=== PATIENT | male | born 1990 | race Hispanic/Latino ===

== ENCOUNTER 2017-07-11 23:26 | Emergency (ER) | payer MEDICAID ==
[2017-07-12] MEDS ORDERED: KETOROLAC TROMETHAMINE 60 MG/2 ML VIAL ONE (01:07)
== END 2017-07-12 01:17 | disposition home or self-care (01) ==
LOC: EDH 23:26
DX: J06.9 Acute upper respiratory infection, unspecified (principal)
CPT/HCPCS: 96372; 99283; J1885

== ENCOUNTER 2018-07-22 02:43 | Emergency (ER) | payer MEDICAID, OTHER | END 2018-07-22 04:14 | disposition home or self-care (01) | LOC: EDH 02:43 | DX: S60.212A Contusion of left wrist, initial encounter (principal); X58.XXXA Exposure to other specified factors, initial encounter; Y93.89 Activity, other specified; Y92.89 Other specified places as the place of occurrence of the external cause; Y99.8 Other external cause status | CPT/HCPCS: 73110 ==

== ENCOUNTER 2019-01-31 22:35 | Emergency (ER) | payer SELFPAY | END 2019-01-31 23:59 | disposition home or self-care (01) | LOC: EDH 22:35 | DX: S05.02XA Injury of conjunctiva and corneal abrasion without foreign body, left eye, initial encounter (principal); X58.XXXA Exposure to other specified factors, initial encounter; Y93.89 Activity, other specified; Y92.89 Other specified places as the place of occurrence of the external cause; Y99.8 Other external cause status ==

== ENCOUNTER 2019-02-22 13:29 | Emergency (ER) | payer SELFPAY ==
[2019-02-22] MEDS ORDERED: NA BORATE/BORIC AC/H2O/NACL 120 ML OPHTH IRRIG SOLN ONE (14:00)
[2019-02-22] MEDS ORDERED: FLUORESCEIN SODIUM 1 STRIP STRIP ONE (14:00)
[2019-02-22] MEDS ORDERED: TETRACAINE HCL 0.5% 4 ML OPHTH SOLN ONE (14:00)
== END 2019-02-22 14:26 | disposition home or self-care (01) ==
LOC: EDH 13:29
DX: S05.02XA Injury of conjunctiva and corneal abrasion without foreign body, left eye, initial encounter (principal); S05.01XA Injury of conjunctiva and corneal abrasion without foreign body, right eye, initial encounter; X58.XXXA Exposure to other specified factors, initial encounter; Y93.89 Activity, other specified; Y92.89 Other specified places as the place of occurrence of the external cause; Y99.8 Other external cause status
CPT/HCPCS: 99282

== ENCOUNTER 2022-10-06 20:27 | Emergency (ER) | payer OTHER ==
[2022-10-06 20:50] VITALS: BP 143/77
[2022-10-07] MEDS ORDERED: ONDA4TAB10 PO (14:17)
[2022-10-07] MEDS ORDERED: OSEL75 PO (14:17)
== END 2022-10-06 21:07 | disposition left against medical advice (07) ==
LOC: EDH 20:27
DX: R11.2 Nausea with vomiting, unspecified (principal); Z53.21 Procedure and treatment not carried out due to patient leaving prior to being seen by health care provider
CPT/HCPCS: 99281

== ENCOUNTER 2022-10-07 12:26 | Emergency (ER) | payer OTHER ==
[~2022-10-07] VITALS: Ht 177.8 cm; Wt 77.1 kg
[2022-10-07 12:26] VITALS: BP 146/70
[2022-10-07 12:50] LABS: BASOPHILS % (AUTO) 0.4 % (0.0-5.0); HEMATOCRIT 48.2 % (42-54); LYMPHOCYTES % (AUTO) 12.6 % (21.0-51.0); MEAN CORPUSCULAR HGB CONC 35.1 g/dL (32.0-36.0); MEAN CORPUSCULAR VOLUME 85.5 fL (79-99); MONOCYTES % (AUTO) 2.9 % (3.0-13.0); NEUTROPHILS % (AUTO) 83.2 % (40.0-77.0); PLATELET COUNT (AUTO) 257 K/uL (130-400); RED BLOOD CELL COUNT(AUTO) 5.64 MIL/uL (4.50-6.20); RED CELL DISTRIBUTION WIDTH 12.4 % (11.0-15.5); WHITE BLOOD COUNT (AUTO) 11.5 K/uL (4.8-10.8)
[2022-10-07 13:03] LABS: ALBUMIN 4.3 g/dL (3.5-5.0); CREATININE 0.9 mg/dL (0.5-1.5); POTASSIUM 4.1 mmol/L (3.5-5.1); TOTAL PROTEIN, SERUM 8.1 g/dL (6.0-8.3)
[2022-10-07] MEDS ORDERED: PANTOPRAZOLE 40 MG/VIAL ONE (14:17)
[2022-10-07] MEDS ORDERED: 0.9%NACL 1000ML 2,000 ML IV ONE (14:17)
[2022-10-07] MEDS ORDERED: OSEL75 PO (14:17)
[2022-10-07] MEDS ORDERED: ONDA4TAB10 PO (14:17)
[2022-10-07 14:25] LABS: APPEARANCE,URINE CLEAR (CLEAR); BILIRUBIN,URINE NEGATIVE (NEGATIVE); COLOR,URINE YELLOW (YELLOW); GLUCOSE, URINE (UA) NEGATIVE (NEGATIVE); KETONES,URINE 150 mg/dL (NEGATIVE); LEUKOCYTE ESTERASE ,URINE NEGATIVE Leu/uL (NEGATIVE); NITRATE,URINE NEGATIVE (NEGATIVE); OCCULT BLOOD,URINE NEGATIVE (NEGATIVE); PROTEIN,URINE 10 mg/dL (NEGATIVE)
[2022-10-07 14:50] LABS: BACTERIA,URINE RARE /HPF (None Seen); MUCUS,URINE RARE LPF (None Seen)
== END 2022-10-07 15:57 | disposition home or self-care (01) ==
LOC: EDH 12:26
DX: J10.1 Influenza due to other identified influenza virus with other respiratory manifestations (principal); K52.9 Noninfective gastroenteritis and colitis, unspecified; R11.2 Nausea with vomiting, unspecified; Z20.822 Contact with and (suspected) exposure to COVID-19; Z79.899 Other long term (current) drug therapy
CPT/HCPCS: 99284; 96365; 87635; 80053; 85025; 87804 ×2; 81001; 36415; C9803; J7030; C9113

== ENCOUNTER 2022-10-09 21:40 | Emergency (ER) | payer OTHER ==
[~2022-10-09] VITALS: Ht 177.8 cm; Wt 72.6 kg
[~2022-10-09 21:40] MED LIST: ONDA4TAB10 PO; OSEL75 PO
[2022-10-09 22:29] LABS: BASOPHILS % (AUTO) 0.5 % (0.0-5.0); EOSINOPHILS % (AUTO) 0.6 % (0.0-8.0); LYMPHOCYTES % (AUTO) 18.2 % (21.0-51.0); MEAN CORPUSCULAR HEMOGLOBIN 29.7 pg (27.0-33.0); MEAN CORPUSCULAR HGB CONC 34.7 g/dL (32.0-36.0); MEAN CORPUSCULAR VOLUME 85.6 fL (79-99); MONOCYTES % (AUTO) 6.2 % (3.0-13.0); NEUTROPHILS % (AUTO) 73.7 % (40.0-77.0); PLATELET COUNT (AUTO) 228 K/uL (130-400); RED BLOOD CELL COUNT(AUTO) 5.49 MIL/uL (4.50-6.20); RED CELL DISTRIBUTION WIDTH 11.9 % (11.0-15.5); WHITE BLOOD COUNT (AUTO) 10.9 K/uL (4.8-10.8)
[2022-10-09 22:39] LABS: POTASSIUM 3.7 mmol/L (3.5-5.1)
[2022-10-09 22:44] LABS: ALBUMIN 4.3 g/dL (3.5-5.0); TOTAL PROTEIN, SERUM 7.8 g/dL (6.0-8.3)
[2022-10-09 22:55] LABS: APPEARANCE,URINE CLEAR (CLEAR); BILIRUBIN,URINE NEGATIVE (NEGATIVE); COLOR,URINE YELLOW (YELLOW); GLUCOSE, URINE (UA) NEGATIVE (NEGATIVE); KETONES,URINE 150 mg/dL (NEGATIVE); LEUKOCYTE ESTERASE ,URINE NEGATIVE Leu/uL (NEGATIVE); NITRATE,URINE NEGATIVE (NEGATIVE); PH,URINE 5.5 (5.0-8.0); PROTEIN,URINE 20 mg/dL (NEGATIVE); UROBILINOGEN,URINE 3 mg/dL (0.2-1.0)
[2022-10-09 22:58] LABS: MUCUS,URINE FEW LPF (None Seen); RBC,URINE 0-1 /HPF (0-1); SQUAMOUS EPITHELIAL CELL,UR RARE /HPF (0-2)
[2022-10-09] MEDS ORDERED: 0.9%NACL 1000ML 1,000 ML IV ONE ×2 (23:00)
[2022-10-09] MEDS ORDERED: KETOROLAC 30MG VIAL (30MG/ML) IVP ONE (23:00)
[2022-10-09] MEDS ORDERED: KETOROLAC 30MG VIAL (30MG/ML) ONE (23:01)
[2022-10-10 00:15] VITALS: BP 123/75
== END 2022-10-10 00:47 | disposition home or self-care (01) ==
LOC: EDH 21:40
DX: R10.9 Unspecified abdominal pain (principal); R19.7 Diarrhea, unspecified; Z79.899 Other long term (current) drug therapy
CPT/HCPCS: 99283; 96374; 96361; 80053; 85025; 81001; 36415; J7030; J1885

== ENCOUNTER 2023-08-13 13:08 | Emergency (ER) | payer OTHER ==
[~2023-08-13] VITALS: Ht 177.8 cm; Wt 68.0 kg
[2023-08-13] MEDS ORDERED: IVER3TAB PO (13:27)
[2023-08-13 13:39] VITALS: BP 130/80; PULSE 90; RESP 16; O2SAT 99
== END 2023-08-13 13:43 | disposition home or self-care (01) ==
LOC: EDH 13:08
DX: B86 Scabies (principal); Z79.899 Other long term (current) drug therapy